=== PATIENT | female | born 1965 | race Caucasian/White ===

== ENCOUNTER 2017-08-31 17:49 | Emergency (ER) | payer SELFPAY, OTHER ==
[2017-08-31] MEDS: HYDROcodone/APAP 10/325 1 TAB TABLET PO (18:46)
== END 2017-08-31 19:15 | disposition home or self-care (01) ==
LOC: ER 17:49
DX: S20.212A Contusion of left front wall of thorax, initial encounter (principal); S80.212A Abrasion, left knee, initial encounter; S50.312A Abrasion of left elbow, initial encounter; J45.909 Unspecified asthma, uncomplicated; K21.9 Gastro-esophageal reflux disease without esophagitis; Z90.49 Acquired absence of other specified parts of digestive tract; W01.0XXA Fall on same level from slipping, tripping and stumbling without subsequent striking against object, initial encounter; Y93.01 Activity, walking, marching and hiking; Y99.0 Civilian activity done for income or pay; Y92.89 Other specified places as the place of occurrence of the external cause
CPT/HCPCS: 71046; 99284